=== PATIENT | male | born 1990 | race American Indian/Alaskan Native ===

== ENCOUNTER 2017-10-29 15:53 | Emergency (ER) | payer MEDICAID, OTHER ==
[2017-10-29 16:13] VITALS: BP 138/77; PULSE 81; RESP 18; TEMP 98.2
[2017-10-29] MEDS ORDERED: cefTRIAXone (Rocephin) 250 mg Inj IM STA (16:42)
--- NOTE | 2017-10-29 16:46 | ED PDOC ---
Arrival/HPI - General Chief Complaint: Male Genitourinary Time Seen by Provider: 10/29/17 16:23 Historian: Patient - History of Present Illness Narrative History of Present Illness (Text): 10/29/17 16:44 26-year-old male presents today after finding out that his girlfriend was diagnosed with chlamydia. Patient denies abdominal pain. Denies chest pain or shortness of breath. Denies fevers or chills. Patient denies penile discharge. Patient denies testicular pain. Patient denies dysuria or urinary frequency or urgency. Patient states she's been eating and drinking well. Patient denies any complaints Past Medical History - Provider Review Nursing Documentation Reviewed: Yes - Travel History Have you recently traveled outside [place] w/in the past 3 mons?: No - Infectious Disease Hx of Infectious Diseases: None - Tetanus Immunization Tetanus Immunization: Unknown - Psychiatric Hx Substance Use: No Family/Social History - Physician Review Nursing Documentation Reviewed: Yes Family/Social History: Unknown Family HX Smoking Status: Never Smoked Hx Alcohol Use: No Hx Substance Use: No Allergies/Home Meds Allergies/Adverse Reactions: Allergies No Known Allergies Allergy (Verified 10/29/17 16:14) Home Medications: Home Meds Medication Instructions Recorded Confirmed No Known Home Med 10/29/17 10/29/17 Review of Systems - Review of Systems Constitutional: absent: Fatigue, Fevers Respiratory: absent: SOB, Cough Cardiovascular: absent: Chest Pain, Palpitations Gastrointestinal: absent: Abdominal Pain, Constipation, Diarrhea, Nausea, Vomiting Genitourinary Male: Other (no penile discharge). absent: Dysuria, Frequency, Hematuria, Urinary Output Changes Musculoskeletal: absent: Arthralgias, Back Pain, Neck Pain Skin: absent: Rash, Pruritis Neurological: absent: Headache, Dizziness Psychiatric: absent: Anxiety, Depression Physical Exam Vital Signs Reviewed: Yes Vital Signs Temp Pulse Resp BP Pulse Ox 10/29/17 16:11 98.2 F 81 18 138/77 100 Temperature: Afebrile Blood Pressure: Normal Pulse: Regular Respiratory Rate: Normal Appearance: Positive for: Well-Appearing, Non-Toxic, Comfortable Pain Distress: None Mental Status: Positive for: Alert and Oriented X 3 - Systems Exam Head: Present: Atraumatic Mouth: Present: Moist Mucous Membranes Neck: Present: Normal Range of Motion Respiratory/Chest: Present: Clear to Auscultation Cardiovascular: Present: Regular Rate and Rhythm Abdomen: No: Tenderness, Rebound, Guarding Genitourinary Male: Present: Normal External Genitalia, Other (chaparoned by [employer]). No: Circumcised Penis, Penile Discharge, Testicle Tenderness, Penile Swelling, Masses, Erythema, Testicle Swelling Upper Extremity: Present: Normal ROM Lower Extremity: Present: Normal ROM Neurological: Present: GCS=15, Speech Normal Skin: Present: Warm, Dry, Normal Color. No: Rashes Psychiatric: Present: Alert, Oriented x 3 Medical Decision Making ED Course and Treatment: 10/29/17 16:47 Patient is nontoxic well-appearing in no distress with stable vital signs. pt's gf tested positive for chlamydia Ceftriaxone 250 mg IM Zithromax 1 g p.o. given Gonorrhea and Chlamydia cultures are pending. Advised patient to refrain from sex for 10 days followup with the primary care physician within the next 2 days or return if symptoms worsen persist or if new symptoms develop. Patient verbalizes understanding of discharge instructions and need for immediate followup. all aspects of this case were discussed the attending of record. Impression: STD exposure Follow up primary care physician within the next 2 days Return if symptoms worsen persist or if new symptoms develop. Disposition/Present on Arrival - Present on Arrival Any Indicators Present on Arrival: No History of DVT/PE: No History of Uncontrolled Diabetes: No Urinary Catheter: No History of Decub. Ulcer: No History Surgical Site Infection Following: None - Disposition Have Diagnosis and Disposition been Completed?: Yes Diagnosis: STD exposure Disposition: HOME/ ROUTINE Disposition Time: 16:43 Patient Plan: Discharge Condition: GOOD Discharge Instructions (ExitCare): Chlamydia and Gonorrhea Additional Instructions: Follow up primary care physician within the next 2 days Return if symptoms worsen persist or if new symptoms develop. Referrals: ReplySend Nataly Andres, [Primary Care Provider] - Follow up with primary Greg Jimenez MD [Staff Provider] - Follow up with primary [facility] [place] - Follow up with primary
[2017-10-29 17:08] VITALS: O2SAT 97
== END 2017-10-29 17:07 | disposition home or self-care (01) ==
LOC: ED 15:53
DX: Z20.2 Contact with and (suspected) exposure to infections with a predominantly sexual mode of transmission (principal)
CPT/HCPCS: 87491; 87591; 96372; 99282; J0696